=== PATIENT | male | born 1985 | race Caucasian/White ===

== ENCOUNTER 2016-10-15 18:21 | Emergency (ER) | payer OTHER ==
[~2016-10-15] VITALS: Ht 188 cm; Wt 87.7 kg
[2016-10-15] MEDS ORDERED: NAPROSYN500 MG PO (21:26)
[2016-10-15 21:41] VITALS: BP 117/64
== END 2016-10-15 21:44 ==
LOC: EME 18:21
DX: S43.402A Unspecified sprain of left shoulder joint, initial encounter (principal); W51.XXXA Accidental striking against or bumped into by another person, initial encounter; Y93.67 Activity, basketball; Z87.891 Personal history of nicotine dependence
CPT/HCPCS: 73030; 99281; 99283